=== PATIENT | male | born 1960 | race African-American/Black ===

== ENCOUNTER 2020-07-01 17:44 | Emergency (ER) | payer MEDICARE, MEDICAID ==
[~2020-07-01] VITALS: Ht 190.5 cm; Wt 113.0 kg
[2020-07-01 21:21] LABS: CHLORIDE 101 mEq/L (98-107)
[2020-07-01 21:23] LABS: BASOPHILS % 0.7 % (0.0-2.0); EOSINOPHILS % 3.1 % (0.0-5.0); HEMATOCRIT. 36.9 % (42.0-52.0); HEMOGLOBIN. 12.3 g/dL (14.0-18.0); LYMPHOCYTES % 27.4 % (20.0-50.0); MEAN CORPUSCULAR HEMOGLOBIN 34.6 pg (28.0-32.0); MEAN PLATELET VOLUME 8.1 fl (7.4-10.4); MONOCYTES % 8.8 % (2.0-8.0); PLATELET 267 x1000/uL (130-400); RED BLOOD CELL COUNT 3.55 mill/uL (4.7-6.1); RED CELL DISTRIBUTION WIDTH 15.8 % (11.6-14.6)
[2020-07-01 21:29] LABS: PHOSPHORUS 3.6 mg/dL (2.5-4.9); PROTHROMBIN TIME 10.5 sec (9.6-11.0)
[2020-07-01 21:37] VITALS: BP 129/81
== END 2020-07-01 22:45 | disposition left against medical advice (07) ==
LOC: ER 17:44
DX: T82.41XA Breakdown (mechanical) of vascular dialysis catheter, initial encounter (principal); Y83.2 Surgical operation with anastomosis, bypass or graft as the cause of abnormal reaction of the patient, or of later complication, without mention of misadventure at the time of the procedure; Y92.9 Unspecified place or not applicable; N18.6 End stage renal disease; Z99.2 Dependence on renal dialysis; G58.9 Mononeuropathy, unspecified
CPT/HCPCS: 36415; 71045; 80053; 83735; 84100; 85025; 93005; 99285

== ENCOUNTER 2023-02-11 11:09 | Inpatient (IN) | payer MEDICARE, MEDICAID ==
[~2023-02-11] VITALS: Ht 195.6 cm; Wt 111.1 kg
[2023-02-11 14:13] LABS: BASOPHILS % 0.9 % (0.0-2.0); EOSINOPHILS % 3.6 % (0.0-5.0); HEMATOCRIT. 30.8 % (42.0-52.0); HEMOGLOBIN. 10.1 g/dL (14.0-18.0); LYMPHOCYTES % 36.6 % (20.0-50.0); MEAN CORPUSCULAR HEMOGLOBIN 32.6 pg (28.0-32.0); MEAN CORPUSCULAR VOLUME 99.1 fL (80.0-94.0); MEAN PLATELET VOLUME 7.8 fl (7.4-10.4); MONOCYTES % 9.4 % (2.0-8.0); NEUTROPHILS % 49.5 % (40.0-76.0); PLATELET 195 x1000/uL (130-400); RED CELL DISTRIBUTION WIDTH 16.4 % (11.6-14.6)
[2023-02-11 14:19] LABS: CHLORIDE 104 mEq/L (98-107)
[2023-02-11] MEDS ORDERED: DEXTROSE 50% WATER 50ML SYRINGE IV NR (15:00)
[2023-02-11] MEDS ORDERED: INSULIN REGULAR (HUMULIN R) 300UNITS/3ML VIAL IV NR (15:00)
[2023-02-11] MEDS ORDERED: CALCIUM CHLORIDE 1GM/10ML SYR IV NR (15:00)
[2023-02-11] MEDS ORDERED: ALBUTEROL (0.083%) 2.5MG/3ML NEB HHN NR (15:00)
[2023-02-11 18:47] LABS: HEPATITIS B SURFACE ANTIGEN NEGATIVE
[2023-02-12] VITALS (17 sets, daily range): BP systolic 100–130; BP diastolic 45–82
[2023-02-12] MEDS ORDERED: CINACALCET HCL 60MG TABLET PO ONE (04:45)
[2023-02-12] MEDS ORDERED: ACETAMINOPHEN 650MG/20.3ML UDC PO PRN (04:45)
[2023-02-12] MEDS ORDERED: SODIUM POLYSTYRENE SULFONATE 15 G/60 ML BOT PO NR ×2 (05:00→08:55)
[2023-02-12] MEDS: ACETAMINOPHEN 325MG TABLET PO PRN ×2 (05:44→10:22)
[2023-02-12] MEDS ORDERED: CHOLECALCIFEROL (D3) 1000 UNIT TABLET PO SCH (09:00)
[2023-02-12] MEDS ORDERED: FOLIC ACID 1MG TABLET PO SCH (09:00)
[2023-02-12] MEDS ORDERED: TAMSULOSIN HCL 0.4MG SR CAPSULE PO SCH (09:00)
[2023-02-12] MEDS: CALCIUM ACETATE 667MG CAPSULE PO SCH ×3 (10:23→18:36)
[2023-02-12] MEDS ORDERED: ALTEPLASE 2MG/VIAL ITC NR (10:30)
[2023-02-12 10:38] LABS: BASOPHILS % 0.7 % (0.0-2.0); EOSINOPHILS % 4.4 % (0.0-5.0); HEMATOCRIT. 30.7 % (42.0-52.0); HEMOGLOBIN. 10.3 g/dL (14.0-18.0); LYMPHOCYTES % 28.7 % (20.0-50.0); MEAN CORPUSCULAR VOLUME 98.9 fL (80.0-94.0); MONOCYTES % 7.9 % (2.0-8.0); NEUTROPHILS % 58.3 % (40.0-76.0); RED BLOOD CELL COUNT 3.11 mill/uL (4.7-6.1); RED CELL DISTRIBUTION WIDTH 16.5 % (11.6-14.6)
[2023-02-12 10:45] LABS: PARTIAL THROMBOPLASTIN TIME 21.8 sec (23.4-31.0); PROTHROMBIN TIME 10.7 sec (9.6-11.0)
[2023-02-12 11:11] LABS: MEAN PLATELET VOLUME 8.3 fl (7.4-10.4); PLATELET 206 x1000/uL (130-400)
[2023-02-12] MEDS ORDERED: ENOXAPARIN 30MG/0.3ML SYR SUBCUT SCH (12:00)
[2023-02-12] MEDS ORDERED: LIDOCAINE HCL 1% 10 MG/ML 10ML VIAL ONE (15:33)
[2023-02-12] MEDS ORDERED: CINACALCET HCL 60MG TABLET PO SCH (17:00)
[2023-02-12] MEDS ORDERED: GABAPENTIN 300MG CAPSULE PO SCH (21:00)
== END 2023-02-12 22:30 | disposition home or self-care (01) | DRG 673 ==
LOC: ER 12:49 → MICUSO 13:12 → EDBEDREQ 13:17 → 6EST 23:55
PROVIDERS: ADMIT Internal Medicine; ATTEND Internal Medicine
PROC: 0JH63XZ Insertion of Tunneled Vascular Access Device into Chest Subcutaneous Tissue and Fascia, Percutaneous Approach (ICD-10-PCS; principal; 2023-02-12)
PROC: 02HV33Z Insertion of Infusion Device into Superior Vena Cava, Percutaneous Approach (ICD-10-PCS; 2023-02-12)
PROC: B5181ZA Fluoroscopy of Superior Vena Cava using Low Osmolar Contrast, Guidance (ICD-10-PCS; 2023-02-12)
PROC: B548ZZA Ultrasonography of Superior Vena Cava, Guidance (ICD-10-PCS; 2023-02-12)
PROC: 5A1D70Z Performance of Urinary Filtration, Intermittent, Less than 6 Hours Per Day (ICD-10-PCS; 2023-02-12)
PROC: 02PYX3Z Removal of Infusion Device from Great Vessel, External Approach (ICD-10-PCS; 2023-02-12)
DX: T82.41XA Breakdown (mechanical) of vascular dialysis catheter, initial encounter (principal); N18.6 End stage renal disease; E87.5 Hyperkalemia; R79.89 Other specified abnormal findings of blood chemistry; Z91.15 Patient's noncompliance with renal dialysis; Z90.49 Acquired absence of other specified parts of digestive tract; Z99.2 Dependence on renal dialysis; Y71.2 Prosthetic and other implants, materials and accessory cardiovascular devices associated with adverse incidents
CPT/HCPCS: 36415; 36581; 71045; 77001; 80048; 80053; 85025; 86705; 86709; 86803; 87340; 90935; 94640; 99285; C1750; C1769; J1642; J1815; J2997; J3490